=== PATIENT | female | born 1965 | race Caucasian/White ===

== ENCOUNTER 2023-11-08 20:02 | Emergency (ER) | payer OTHER ==
[2023-11-08 21:20] LABS: #Eosinphils 0.1 thou/uL (0.0-0.7); #Monocytes 0.6 thou/uL (0.11-0.59); #Neutrophils 9.5 thou/uL (1.40-6.50); %Basophils 0.1 % (0.0-1.0); %Eosinophils 0.6 % (0.0-10.0); %Lymphocytes 12.2 % (21.0-51.0); %Neutrophils 81.3 % (42.0-75.0); Hematocrit 35.7 % (36.0-47.0); Hemoglobin 12.1 g/dL (12.0-16.0); Mean Corpuscular HGB CONC 33.9 g/dL (32.0-36.0); Mean Corpuscular Hemoglobin 30.9 pg (27.0-31.0); Mean Corpuscular Volume 91.3 fl (78.0-98.0); Mean Platelet Volume 8.6 fL (7.4-10.4); Platelet Count 268 10x3/uL (130-400); RBC Distribution Width 15.3 % (11.5-14.5); Red Blood Cell (RBC) Count 3.91 mill/uL (4.20-5.40); White Blood Cell (WBC) Count 11.7 10x3/uL (4.8-10.8)
[2023-11-08 21:52] LABS: Troponin I 0.011 ng/mL (< 0.028)
[2023-11-08 21:58] LABS: ALT (SGPT) 24 U/L (8-55); AST (SGOT) 11 U/L (5-34); Albumin 3.6 g/dL (3.5-5.0); Alkaline Phosphatase 83 U/L (40-110); Anion Gap 13 mmol/L (10-20); BUN (Urea Nitrogen) 13 mg/dL (9.8-20.1); Bilirubin, Total 0.3 mg/dL (0.2-1.2); Calc. Creatinine Clearance 0 mL/min (70-130); Calcium 8.8 mg/dL (7.8-10.44); Carbon Dioxide 25 mmol/L (22-29); Chloride 106 mmol/L (98-107); Estimated GFR 108; Globulin 2.4 g/dL (2.4-3.5); Glucose 102 mg/dL (70-105); Potassium 3.9 mmol/L (3.5-5.1); Sodium 140 mmol/L (136-145)
[2023-11-08] MEDS ORDERED: Dexamethasone 10 MG/ML VIAL ONE (22:44)
== END 2023-11-09 00:45 | disposition home or self-care (01) ==
LOC: ERS 20:02
DX: J44.1 Chronic obstructive pulmonary disease with (acute) exacerbation (principal); I10 Essential (primary) hypertension; F17.210 Nicotine dependence, cigarettes, uncomplicated
CPT/HCPCS: 36415; 71045; 80053; 83880; 84484; 85025; 96361; 96374; J1100

== ENCOUNTER 2023-11-09 05:13 | Emergency (ER) | payer OTHER ==
[2023-11-09] MEDS ORDERED: Ondansetron PF 4 MG/2 ML Vial ONE (05:37)
[2023-11-09] MEDS ORDERED: fentaNYL 50 mcg/mL 1 mL Vial ONE (05:37)
[2023-11-09] MEDS ORDERED: cefTRIAXone (ROCEPHIN) 1 GM VIAL ONE (06:54)
[2023-11-09] MEDS ORDERED: Sodium Chloride 0.9% 100 ML ONE (06:54)
[2023-11-09] MEDS ORDERED: Albuterol 2.5 MG (3 mL) NEB ONE (07:17)
[2023-11-09] MEDS ORDERED: Azithromycin 500 MG VIAL ONE (07:26)
[2023-11-09] MEDS ORDERED: Albuterol 200 PUFF (6.7GM INHALER) ONE (08:19)
== END 2023-11-09 10:12 | disposition home or self-care (01) ==
LOC: ERS 05:13
DX: M79.604 Pain in right leg (principal); J44.1 Chronic obstructive pulmonary disease with (acute) exacerbation; I10 Essential (primary) hypertension; F17.210 Nicotine dependence, cigarettes, uncomplicated; W18.09XA Striking against other object with subsequent fall, initial encounter
CPT/HCPCS: 36415; 70450; 71045; 72125; 72170; 80053; 83880; 84484; 85025; 94640; 96361; 96365; 96367; 96374; 96375; J0456; J0696; J1100; J2405; J3010; J3490; J7611